=== PATIENT | male | born 1970 | race African-American/Black ===

== ENCOUNTER 2021-10-29 14:23 | Inpatient (IN) | payer SELFPAY ==
[2021-10-29 15:51] LABS: Hematocrit 44.9 % (35.5-45.6); Hemoglobin 15.5 gm/dl (11.8-15.2); Mean Corpuscular HGB Conc 34 % (32-34); Mean Corpuscular Volume 94 fl (84-94); Platelet Count 256 K/mm3 (140-440); Red Blood Count 4.78 M/mm3 (3.65-5.03); Red Cell Distribution Width 12.9 % (13.2-15.2)
[2021-10-29 16:10] LABS: Alanine Aminotransferase 29 units/L (7-56); Albumin 4.5 g/dL (3.9-5); Blood Urea Nitrogen 19 mg/dL (9-20); Calcium 9.1 mg/dL (8.4-10.2); Hemolysis Index 6
[2021-10-29 16:16] LABS: BUN/Creatinine Ratio 32
--- NOTE | 2021-10-30 05:12 | Cat Scan Report ---
CT ABDOMEN AND PELVIS WITH CONTRAST HISTORY: Right ABD Pain. COMPARISON: None. TECHNIQUE: CT images of the abdomen and pelvis were obtained following administration of intravenous contrast. All CT scans at this location are performed using CT dose reduction for ALARA by means of automated exposure control. CONTRAST: 100 ml of intravenous contrast administered. FINDINGS: Lungs/bones: Lung bases are clear Abdomen/pelvis: Mild fatty infiltration the liver. Spleen, adrenal glands, pancreas and gallbladder appear normal. Portal vein is patent. Mild proximal left renal pelvis could represent extra renal pel vis. Right kidney appears normal. The appendix is dilated. Trace surrounding inflammation. Thickened wall appendix is identified. Appen jaskaran measures 9 mm. Constipation seen throughout the colon.. No free fluid or perforation. IMPRESSION: 1. Acute appendicitis. IMPORTANT FINDING: Time of Communication (BOTTOM MAN/CDT): 406 Licensed Practitioner Receiving Report: ER Signer Name: Adam Winston MD Signed: 10/30/2021 5:08 AM Workstation Name: [id number]
[2021-10-30] MEDS ORDERED: PIPERACIL/TAZOBACTA 4.5/NS 100 4.5 GM/100 ML VIAL IV STA (05:35)
[2021-10-30] MEDS ORDERED: MORPHINE 4 MG/1 ML INJ IV ONE (05:35)
--- NOTE | 2021-10-30 05:37 | Emergency Department Report ---
ED Abdominal Pain HPI - General Chief Complaint: Abdominal Pain Stated Complaint: PAIN ON RIGHT SIDE UNDER RIBS Time Seen by Provider: 10/30/21 03:10 Source: patient Mode of arrival: Ambulatory Limitations: No Limitations - History of Present Illness Initial Comments: 51-year-old male + department complaining on the emergency of abdominal pain to the right side of his body on yesterday morning which is progressively initially worsened and then maintained the pain since the onset. Pain is dull and throbbing and radiates up and down the right side associate with occasional nausea but no vomiting. No fever, chills, sweats. No diarrhea, no hemoptysis no hematemesis and no medic easier. Had a similar episode a few years ago that was thought to have been his gallbladder but no surgery was indicated. MD Complaint: abdominal pain Location: RLQ Radiation: RLQ Migration to: no migration Severity: mild, moderate Quality: aching, dull Consistency: constant Improves With: nothing Worsens With: nothing - Related Data Home Medications Medication Instructions Recorded Confirmed Last Taken Sertraline [Zoloft] 25 mg PO QDAY 09/06/15 09/06/15 09/05/15 atenoloL [Tenormin] 25 mg PO DAILY 09/06/15 09/06/15 09/05/15 Previous Rx's Medication Instructions Recorded Last Taken Type diazePAM TAB [Valium] 2 mg PO Q8HR PRN #10 tablet 09/06/15 Unknown Rx Allergies Allergy/AdvReac Type Severity Reaction Status Date / Time No Known Allergies Allergy Verified 10/29/21 15:17 ED Review of Systems ROS: Stated complaint: PAIN ON RIGHT SIDE UNDER RIBS Other details as noted in HPI Comment: All other systems reviewed and negative ED Past Medical Hx - Past Medical History Hx Hypertension: Yes - Social History Smoking Status: Former Smoker Substance Use Type: None - Medications Home Medications: Home Medications Medication Instructions Recorded Confirmed Last Taken Type Sertraline [Zoloft] 25 mg PO QDAY 09/06/15 09/06/15 09/05/15 History atenoloL [Tenormin] 25 mg PO DAILY 09/06/15 09/06/15 09/05/15 History diazePAM TAB [Valium] 2 mg PO Q8HR PRN #10 tablet 09/06/15 Unknown Rx ED Physical Exam - General Limitations: No Limitations General appearance: alert, in no apparent distress - Head Head exam: Present: atraumatic, normocephalic - Eye Eye exam: Present: normal appearance, PERRL, EOMI Pupils: Present: normal accommodation - ENT ENT exam: Present: mucous membranes moist - Neck Neck exam: Present: normal inspection, full ROM - Respiratory Respiratory exam: Present: normal lung sounds bilaterally. Absent: respiratory distress - Cardiovascular Cardiovascular Exam: Present: regular rate, normal rhythm. Absent: systolic murmur, diastolic murmur, rubs, gallop - GI/Abdominal GI/Abdominal exam: Present: soft, tenderness (Right-sided abdomen the right hypochondriac area with no rebound.), normal bowel sounds - Rectal Rectal exam: Present: deferred - Extremities Exam Extremities exam: Present: normal inspection - Back Exam Back exam: Present: normal inspection - Neurological Exam Neurological exam: Present: alert, oriented X3 - Psychiatric Psychiatric exam: Present: normal affect, normal mood - Skin Skin exam: Present: warm, dry, intact, normal color. Absent: rash ED Course Vital Signs 10/29/21 15:14 Temperature 98.2 F Pulse Rate 76 Respiratory 18 Rate Blood Pressure 155/91 [Left] O2 Sat by Pulse 97 Oximetry ED Medical Decision Making - Lab Data Result diagrams: 10/29/21 15:35 10/29/21 15:35 - Radiology Data Radiology results: [place] [address] Cat Scan Report Signed Patient: SONIYA IVEY MR#: [id number] : 1970 A cct:[id number] Age/Sex: 51 / M ADM Date: 10/29/21 Loc: ED Attending Dr: Ordering Physician: PAUL TALAMANTES Date of Service: 10/30/21 Procedure(s): CT abdomen pelvis w con Accession Number(s): [id number] cc: PAUL TALAMANTES CT ABDOMEN AND PELVIS WITH CONTRAST HISTORY: Right ABD Pain. COMPARISON: None. TECHNIQUE: CT images of the abdomen and pelvis were obtained following administration of intravenous contrast. All CT scans at this location are performed using CT dose reduction for ALARA by means of automated exposure control. CONTRAST: 100 ml of intravenous contrast administered. FINDINGS: Lungs/bones: Lung bases are clear Abdomen/pelvis: Mild fatty infiltration the liver. Spleen, adrenal glands, pancreas and gallbladder appear normal. Portal vein is patent. Mild proximal left renal pelvis could represent extra renal pelvis. Right kidney appears normal. The appendix is dilated. Trace surrounding inflammation. Thickened wall appendix is identified. Appendix measures 9 mm. Constipation seen throughout the colon.. No free fluid or perforation. IMPRESSION: 1. Acute appendicitis. IMPORTANT FINDING: Time of Communication (SYRUP SHED SUPERVISOR/CDT): 406 Licensed Practitioner Receiving Report: ER Signer Name: Adam Winston MD Signed: 10/30/2021 5:08 AM Workstation Name: [id number] Transcribed By: CW Dictated By: SHEKHAR WINSTON MD Electronically Authenticated By: SHEKHAR WINSTON MD Signed Date/Time: 10/30/21507 DD/ 3 TD/TT: Print - Medical Decision Making 51-year-old male with a right saddle pain found to have acute appendicitis. Is admitted to the hospital with a plan of surgery this morning. Surgery will be p erformed by Dr. Lu. Hospitalist management will be managed by Dr. Kearns and his team Critical care attestation.: If time is entered above; I have spent that time in minutes in the direct care of this critically ill patient, excluding procedure time. ED Disposition Clinical Impression: Acute appendicitis Disposition: ADMITTED INPATIENT Is pt being admited?: Yes Does the pt Need Aspirin: No Condition: Undetermined
[2021-10-30 06:22] LABS: Color,Urine Colorless (Yellow)
[2021-10-30] MEDS ORDERED: propofoL 200 MG/20 ML VIAL IV ONE (06:24)
[2021-10-30] MEDS ORDERED: LIDOCAINE MPF (2%) 20 MG/1 ML VIAL 5 ML ONE (06:24)
[2021-10-30] MEDS ORDERED: fentaNYL 100 MCG/2 ML INJ ONE (06:24)
[2021-10-30 06:25] LABS: WBC,Urine < 1.0 /HPF (0.0-6.0)
--- NOTE | 2021-10-30 06:41 | Consultation ---
History of Present Illness Consult date: 10/30/21 Reason for consult: abdominal pain - History of present illness History of present illness: 51-year-old male + department complaining on the emergency of abdominal pain to the right side of his body on yesterday morning which is progressively initially worsened and then maintained the pain since the onset. Pain is dull and throb remigio and radiates up and down the right side associate with occasional nausea but no vomiting. No fever, chills, sweats. No diarrhea, no hemoptysis no hematemesis and no medic easier. Had a similar episode a few years ago that was thought to have been his gallbladder but no surgery was indicated. CT abdo with retro cecal acute appendicitis. WBC ct 15,000. Pt denies fh of crc. Medications and Allergies Allergies Allergy/AdvReac Type Severity Reaction Status Date / Time No Known Allergies Allergy Verified 10/29/21 15:17 Home Medications Medication Instructions Recorded Confirmed Last Taken Type Sertraline [Zoloft] 25 mg PO QDAY 09/06/15 09/06/15 09/05/15 History atenoloL [Tenormin] 25 mg PO DAILY 09/06/15 09/06/15 09/05/15 History diazePAM TAB [Valium] 2 mg PO Q8HR PRN #10 tablet 09/06/15 Unknown Rx Exam Vital Signs Temp Pulse Resp BP Pulse Ox 98.2 F 76 18 155/91 97 10/29/21 15:14 10/29/21 15:14 10/29/21 15:14 10/29/21 15:14 10/29/21 15:14 - General physical appearance Positive: well developed, moderate distress - Neck Positive: no masses, no bruits, trachea midline - Respiratory Positive: normal expansion - Cardiovascular Rhythm: regular - Extremities Extremities: no ischemia, No edema - Abdomen Abdomen: Present: soft, tender, bowel sounds hypoactive, distended, rebound, guarding. Absent: masses, rigid Hernia: none - Neurologic Neurologic: alert and oriented to time, place and person, motor strength and sensation are grossly intact, CN II-XII intact Results - Labs 10/29/21 15:35 10/29/21 15:35 Abnormal lab results 10/29/21 10/29/21 Range/Units 15:35 15:35 WBC 15.3 H (4.5-11.0) K/mm3 Hgb 15.5 H (11.8-15.2) gm/dl RDW 12.9 L (13.2-15.2) % Carbon Dioxide 21 L (22-30) mmol/L Creatinine 0.6 L (0.8-1.3) mg/dL Glucose 118 H (75-100) mg/dL Diabetes panel 10/29/21 Range/Units 15:35 Sodium 139 (137-145) mmol/L Potassium 4.0 (3.6-5.0) mmol/L Chloride 106.2 (98-107) mmol/L Carbon Dioxide 21 L (22-30) mmol/L BUN 19 (9-20) mg/dL Creatinine 0.6 L (0.8-1.3) mg/dL Glucose 118 H (75-100) mg/dL Calcium 9.1 (8.4-10.2) mg/dL AST 22 (5-40) units/L ALT 29 (7-56) units/L Alkaline Phosphatase 106 (35-129) units/L Total Protein 7.5 (6.3-8.2) g/dL Albumin 4.5 (3.9-5) g/dL Calcium panel 10/29/21 Range/Units 15:35 Calcium 9.1 (8.4-10.2) mg/dL Albumin 4.5 (3.9-5) g/dL Pituitary panel 10/29/21 Range/Units 15:35 Sodium 139 (137-145) mmol/L Potassium 4.0 (3.6-5.0) mmol/L Chloride 106.2 (98-107) mmol/L Carbon Dioxide 21 L (22-30) mmol/L BUN 19 (9-20) mg/dL Creatinine 0.6 L (0.8-1.3) mg/dL Glucose 118 H (75-100) mg/dL Calcium 9.1 (8.4-10.2) mg/dL Adrenal panel 10/29/21 Range/Units 15:35 Sodium 139 (137-145) mmol/L Potassium 4.0 (3.6-5.0) mmol/L Chloride 106.2 (98-107) mmol/L Carbon Dioxide 21 L (22-30) mmol/L BUN 19 (9-20) mg/dL Creatinine 0.6 L (0.8-1.3) mg/dL Glucose 118 H (75-100) mg/dL Calcium 9.1 (8.4-10.2) mg/dL Total Bilirubin 0.50 (0.1-1.2) mg/dL AST 22 (5-40) units/L ALT 29 (7-56) units/L Alkaline Phosphatase 106 (35-129) units/L Total Protein 7.5 (6.3-8.2) g/dL Albumin 4.5 (3.9-5) g/dL
--- NOTE | 2021-10-30 06:54 | Anesthesia Day of Surgery ---
Anesthesia Day of Surgery - Day of Surgery Patient Examined: Yes Patient is NPO: Yes
[2021-10-30] MEDS ORDERED: MIDAZOLAM 2 MG/2 ML INJ ONE (06:55)
--- NOTE | 2021-10-30 06:55 | Anesthesia Consultation ---
Anesthesia Consult and Med Hx Date of service: 10/30/21 - Airway Anesthetic Teeth Evaluation: Good ROM Head & Neck: Adequate Mental/Hyoid Distance: Adequate Mallampati Class: Class II Intubation Access Assessment: Good - Pulmonary Exam CTA: Yes - Cardiac Exam Cardiac Exam: RRR - Pre-Operative Health Status ASA Pre-Surgery Classification: ASA2, Emergency Proposed Anesthetic Plan: General - Pulmonary Hx Smoking: Yes - Cardiovascular System Hx Hypertension: Yes
[2021-10-30] MEDS ORDERED: LACTATED RINGERS 1,000 ML ONE ×2 (06:56→07:53)
[2021-10-30] MEDS ORDERED: BUPIVACAINE/PF (0.25%) 2.5 MG/ML 30 ML VIAL INFILTRATI ONE ×2 (07:34→08:13)
[2021-10-30] MEDS ORDERED: LIDOCAINE (2%) 20 MG/1 ML VIAL 20 ML MDV INFILTRATI ONE ×2 (07:34→08:13)
[2021-10-30] MEDS ORDERED: ePHEDrine SULFATE 50 MG/1 ML INJ ONE (07:36)
[2021-10-30] MEDS ORDERED: ONDANSETRON 4 MG/2 ML INJ ONE (07:41)
[2021-10-30] MEDS ORDERED: KETOROLAC 30 MG/1 ML INJ ONE (07:41)
[2021-10-30] MEDS ORDERED: dexAMETHasone 20 MG/5 ML VIAL ONE (07:41)
[2021-10-30] MEDS ORDERED: ROCURONIUM 50 MG/5 ML INJ IV ONE ×2 (07:41→08:05)
[2021-10-30] MEDS ORDERED: SUGAMMADEX SODIUM 200 MG/2 ML VIAL IV ONE (08:10)
[2021-10-30] MEDS ORDERED: HYDROmorphone 0.5 MG/0.5 ML INJ ONE (08:14)
[2021-10-30] MEDS ORDERED: hydrALAZINE 20 MG/1 ML INJ IV PRN (08:30)
[2021-10-30] MEDS ORDERED: MORPHINE 2 MG/1 ML INJ IV PRN (08:30)
[2021-10-30] MEDS ORDERED: ONDANSETRON 4 MG/2 ML INJ IV PRN ×2 (08:30→08:34)
[2021-10-30] MEDS ORDERED: HYDROcodone/ACETAMINOPHEN 5-325 MG TAB PO PRN (08:34)
[2021-10-30] MEDS ORDERED: ACETAMINOPHEN 325 MG TAB PO PRN (08:34)
[2021-10-30] MEDS ORDERED: MORPHINE 4 MG/1 ML INJ IV PRN (08:34)
--- NOTE | 2021-10-30 08:47 | Operative Report ---
Operative Report Operative Report: Procedure date: 10/30/2021 Preop diagnosis: Acute appendicitis Postop diagnosis: Same Procedure: Laparoscopic appendectomy Surgeon: Dr. Lu Anesthesia: General endotracheal Estimated blood loss: 10 cc Specimen: Appendix Findings: This patient presents with a acute appendicitis diagnosed on CAT scan. He is taken to the OR and under general endotracheal anesthesia timeouts and consents are obtained. An Joseph catheter is placed. Abdomen is prepped with ChloraPrep and 3 minutes later draped in a sterile fashion. A 2 mm incision is made in the left upper quadrant and Veress needle was used to gain access peritoneal cavity. Abdomen is insufflated with CO2. 5 De La Torre port is placed in the right upper quadrant and in the low midline. A 12 mm port is placed supraumbilically. The cecum is somewhat high riding near the right subcostal margin. The appendix is identified in the right hypogastrium quadrant and grasped with graspers. Harmonic scalpel was used to divide the mesoappendix. The endoscopic LUCA stapler is used to separate the appendix from the base of the cecum. Specimen is then placed in a specimen bag and extracted through the 10 mm port. The fascial defect is then closed with a Benjamin Scott system and a 2-0 Vicryl stitch. Skin is then closed with 4-0 Monocryl and Dermabond.
--- NOTE | 2021-10-30 08:59 | History and Physical Report ---
History of Present Illness Date of examination: 10/30/21 Date of admission: 10/30/21 Chief complaint: abdominal pain History of present illness: 51-year-old male presented to ER with complaining of abdominal pain to the right side of his body since yesterday morning. Pain is dull, throbbing and radiates up and down the right side associate with occasional nausea but no vomiting. No fever, chills, sweats. No diarrhea, no hemoptysis no hematemesis and no medic easier. Had a similar episode a few years ago that was thought to have been his gallbladder but no surgery was indicated. In the ER CT abdomen/pelvis showed retro cecal acute appendicitis and WBC ct 15 ,000. In the ER patient placed on empiric abx, GS consulted for appendectomy. He is being admitted for further evaluation and Mx. Review of System: Constitutional: no fever, no chills, no weight loss Ears, eyes, nose, mouth and throat: no nasal congestion, no nasal discharge, no sinus pressure, no vision change, no red eye. Neck: No neck pain or rigidity. Cardiovascular: No chest pain, no orthopnea, no palpitations, no leg swelling Respiratory: No shortness of breath, no cough, no congestion, no wheezing Gastrointestinal: +ve abdominal pain, no nausea, no vomiting Genitourinary : no dysuria, no hematuria Musculoskeletal: no joint swelling or muscle ache Integumentary: no rash, no pruritis Neurological: no parathesias, no numbness, no tingling Endocrine: no cold or heat intolerance, no polyuria or polydipsia Hematologic/Lymphatic: no easy bruising, no easy bleeding, no gland swelling Allergic/Immunologic: no urticaria, no angioedema. Past History Past Medical History: No medical history Past Surgical History: No surgical history Social history: no significant social history Family history: diabetes Medications and Allergies Allergies Allergy/AdvReac Type Severity Reaction Status Date / Time No Known Allergies Allergy Verified 10/29/21 15:17 Home Medications Medication Instructions Recorded Confirmed Last Taken Type Sertraline [Zoloft] 25 mg PO QDAY 09/06/15 09/06/15 09/05/15 History atenoloL [Tenormin] 25 mg PO DAILY 09/06/15 09/06/15 09/05/15 History diazePAM TAB [Valium] 2 mg PO Q8HR PRN #10 tablet 09/06/15 Unknown Rx oxyCODONE /ACETAMINOPHEN [Percocet 1 tab PO Q8H PRN #14 tablet 10/31/21 Unknown Rx 5/325] Active Meds: Active Medications Acetaminophen (Acetaminophen 325 Mg Tab) 650 mg PO Q4H PRN PRN Reason: Pain MILD(1-3)/Fever >100.5/[place] Hydrocodone Bitart/Acetaminophen (Hydrocodone/Acetaminophen 5-325 Mg Tab) 2 each PO Q6H PRN PRN Reason: Pain, Moderate (4-6) Enoxaparin Sodium (Enoxaparin 40 Mg/0.4 Ml Inj) 40 mg SUB-Q QDAY@2200 KATHRYN; Protocol Hydralazine HCl (Hydralazine 20 Mg/1 Ml Inj) 5 mg IV Q30MIN PRN PRN Reason: Hypertension Dextrose/Sodium Chloride (D5ns) 1,000 mls @ 125 mls/hr IV DIRECT KATHRYN Morphine Sulfate (Morphine 2 Mg/1 Ml Inj) 2 mg IV Q4H PRN PRN Reason: Pain, Moderate (4-6) Morphine Sulfate (Morphine 4 Mg/1 Ml Inj) 4 mg IV Q4H PRN PRN Reason: Pain , Severe (7-10) Ondansetron HCl (Ondansetron 4 Mg/2 Ml Inj) 4 mg IV Q8H PRN PRN Reason: N/V unrelieved by Regstanley Ondansetron HCl (Ondansetron 4 Mg/2 Ml Inj) 4 mg IV Q8H PRN PRN Reason: Nausea And Vomiting Sodium Chloride (Sodium Chloride 0.9% 10 Ml Flush Syringe) 10 ml IV BID KATHRYN Sodium Chloride (Sodium Chloride 0.9% 10 Ml Flush Syringe) 10 ml IV PRN PRN PRN Reason: LINE FLUSH Exam - Physical Exam Narrative exam: - General physical appearance Positive: well developed, moderate distress - Neck Positive: no masses, no bruits, trachea midline - Respiratory Positive: normal expansion - Cardiovascular Rhythm: regular - Extremities Extremities: no ischemia, No edema - Abdomen Abdomen: Present: soft, tender, bowel sounds hypoactive, distended, rebound, guarding. Absent: masses, rigid Hernia: none - Neurologic Neurologic: alert and oriented to time, place and person, motor strength and sensation are grossly intact, CN II-XII intact - Constitutional Vitals: Temp Pulse Resp BP Pulse Ox 96.4 F L 81 20 114/70 100 10/30/21 08:37 10/30/21 08:45 10/30/21 08:45 10/30/21 08:45 10/30/21 08:45 Results - Labs CBC & Chem 7: 10/31/21 08:51 10/31/21 08:51 Labs: Abnormal lab results 10/29/21 10/29/21 Range/Units 15:35 15:35 WBC 15.3 H (4.5-11.0) K/mm3 Hgb 15.5 H (11.8-15.2) gm/dl RDW 12.9 L (13.2-15.2) % Carbon Dioxide 21 L (22-30) mmol/L Creatinine 0.6 L (0.8-1.3) mg/dL Glucose 118 H (75-100) mg/dL - Imaging and Cardiology CT scan - abdomen: report reviewed Assessment and Plan --SIRS with leukocytosis --Acute appendicitis Admit for acute mx for appendicitis cont iv fluid, given iv abx cont abx, GS consulted for appendectomy DVT Px- SCD Full code status
[2021-10-30] MEDS ORDERED: D5W/0.9% NACL 1,000 ML IV SCH (09:00)
--- NOTE | 2021-10-30 11:14 | Post Anesthesia Evaluation ---
- Post Anesthesia Evaluation Patient Participated: Yes Airway Patent: Yes Stable Respiratory Function: Yes Nausea/Vomiting: No Temp > 96.8F: Yes Pain Manageable: Yes Adequeate Hydration: Yes Anesthesia Complications: No Other Comments: Patient noted to have desaturations to high 80s while sleeping which improved with NC. Deep breathing and IS encouraged. Stable for transfer to floor with continuous pulse ox.
[2021-10-30] MEDS ORDERED: ENOXAPARIN 40 MG/0.4 ML INJ SUB-Q SCH (22:00)
[2021-10-31 06:28] VITALS: BP 108/71
[2021-10-31] MEDS ORDERED: PIPERACIL/TAZOBACTA 4.5/NS 100 4.5 GM/100 ML VIAL IV SCH (09:00)
[2021-10-31 09:02] LABS: Hematocrit 42.4 % (35.5-45.6); Hemoglobin 14.3 gm/dl (11.8-15.2); Mean Corpuscular HGB Conc 34 % (32-34); Mean Corpuscular Volume 95 fl (84-94); Platelet Count 230 K/mm3 (140-440); Red Blood Count 4.46 M/mm3 (3.65-5.03); Red Cell Distribution Width 12.8 % (13.2-15.2)
[2021-10-31 09:25] LABS: Blood Urea Nitrogen 14 mg/dL (9-20); Calcium 8.7 mg/dL (8.4-10.2); Hemolysis Index 15
[2021-10-31 09:30] LABS: BUN/Creatinine Ratio 23
--- NOTE | 2021-10-31 15:52 | Discharge Summary ---
Providers - Providers Date of Admission: 10/30/21 08:36 Date of discharge: 10/31/21 Attending physician: GINO AMAYA Primary care physician: RALEIGH GOLDEN Hospitalization Condition: Undetermined Disposition: 01 HOME / SELF CARE / HOMELESS Core Measure Documentation - Palliative Care Palliative Care/ Comfort Measures: Not Applicable - Core Measures Any of the following diagnoses?: none Exam - Constitutional Vitals: Temp Pulse Resp BP Pulse Ox 97.6 F 69 18 108/71 100 10/31/21 04:55 10/31/21 04:55 10/31/21 04:55 10/31/21 04:55 10/31/21 04:55 Plan Activity: no restrictions Diet: clear liquids, advance as tolerated Follow up with: RALEIGH GOLDEN MD [Primary Care Provider] - 7 Days BOBBY MORILLO MD [Staff Physician] - 7 Days
== END 2021-10-31 19:10 | disposition home or self-care (01) | DRG 342 ==
LOC: ED 14:23 → SUATTDRO 10-30 07:42 → OR 10-30 07:42 → 3A 10-30 08:36
PROVIDERS: ADMIT Internal Medicine; ATTEND Internal Medicine
PROC: 0DTJ4ZZ Resection of Appendix, Percutaneous Endoscopic Approach (ICD-10-PCS; principal; 2021-10-30)
DX: K35.80 Unspecified acute appendicitis (principal); R65.10 Systemic inflammatory response syndrome (SIRS) of non-infectious origin without acute organ dysfunction; Z87.891 Personal history of nicotine dependence; I10 Essential (primary) hypertension; Z83.3 Family history of diabetes mellitus
CPT/HCPCS: 36415; 74177; 80048; 80053; 81001; 83690; 85027; 88304; 99285; 99406; G0378; J3490; J1100; J1170; J1650; J1885; J2250; J2270; J2405; J2543; J2704; J3010; J7042; J7120; Q9967